=== PATIENT | female | born 1995 | race Caucasian/White ===

== ENCOUNTER 2021-10-12 18:12 | Outpatient (CLI) | payer OTHER ==
[2021-10-12 19:53] VITALS: BP 113/70
[2021-10-12 20:21] LABS: Mucus,Urine 3+ /HPF
[2021-10-12 20:46] LABS: Bilirubin,Urine Negative (Negative); Blood,Urine Negative (Negative); Color,Urine Straw (Yellow); Urobilinogen,Urine < 2.0 mg/dL (<2.0)
[2021-10-12] MEDS ORDERED: ONDANSETRON 4 MG ODT TAB PO STA (20:59)
[2021-10-12] MEDS ORDERED: LACTATED RINGERS 1,000 ML IV ONE (22:00)
== END 2021-10-12 23:02 | disposition home or self-care (01) ==
LOC: TRG 18:12 → APU 18:13 → TRG 23:02
PROVIDERS: ATTEND Obstetrics & Gynecology
DX: O26.893 Other specified pregnancy related conditions, third trimester (principal); R10.2 Pelvic and perineal pain; N89.8 Other specified noninflammatory disorders of vagina; Z3A.32 32 weeks gestation of pregnancy
CPT/HCPCS: 36415; 59025; 81001; 84112; 87591; 96360; 96361; J7120; Q0162; J3490